=== PATIENT | female | born 1980 | race Caucasian/White ===

== ENCOUNTER 2018-10-23 14:23 | Emergency (ER) | payer MEDICARE, OTHER ==
[~2018-10-23] VITALS: Wt 99.0 kg
[~2018-10-23 14:23] MED LIST: FERR27TA PO; PREN1TAB49; TYLENOL; [UNRECOGNIZED DRUG - REMARK]
[2018-10-23 14:29] VITALS: Wt 99.0 kg
[2018-10-23] MEDS ORDERED: SODIUM CHLORIDE 0.9% 1L BAG IV* STA (14:38)
[2018-10-23] MEDS ORDERED: NITR-58 PO (16:11)
--- NOTE | 2018-10-23 16:11 | ERD ---
ER Documentation Chief Complaint Chief Complaint LUQ AP since last night. vomit x1. urinary frequency; no pain/ burning. HPI 38-year-old female presents the emergency department complaining of left upper quadrant abdominal pain and urinary frequency. Patient states that beginning yesterday, she began having the above symptoms. She reported no fevers or chills. She states she has had similar pain previously but this is slightly worse. The pain does not radiate. She reports no hematuria, vaginal bleeding, diarrhea. ROS All systems reviewed and are negative except as per history of present illness. Medications Home Meds Reported Medications [?Nausea Med] No Conflict Check 09/01/11 [Tylenol] No Conflict Check 09/01/11 Ferrous Sulfate (Iron) 1 Tab Tablet, PO DAILY 08/09/11 Vits W-Ca,Fe,Fa(<1MG) () 1 Tab Tablet 07/24/11 Allergies Allergies: Coded Allergies: metronidazole (Verified Allergy, Mild, 10/30/14) Sulfa (Sulfonamide Antibiotics) (Verified Allergy, Unknown, 10/30/14) PMhx/Soc History of Surgery: Yes (C SECTION ) Anesthesia Reaction: No Hx Neurological Disorder: No Hx Respiratory Disorders: No Hx Cardiac Disorders: No Hx Psychiatric Problems: No Hx Miscellaneous Medical Probl: Yes (MILD RETARDED) Hx Alcohol Use: No Hx Substance Use: No Hx Tobacco Use: No Smoking Status: Never smoker FmHx Noncontributory for chief complaint Physical Exam Vitals Vital Signs Date Temp Pulse Resp B/P (MAP) Pulse Ox O2 O2 Flow FiO2 Time Delivery Rate 10/23/18 100.8 102 16 139/74 100 14:29 (95) Physical Exam GENERAL: The patient is well developed and appropriate for usual state of health in no apparent distress HEENT: Pupils equal, round, and reactive to light. EOMI. There is no scleral icterus. NECK: C-spine is soft and supple, there is no meningismus. There is no cervical lymphadenopathy. LUNGS: Clear to auscultation bilaterally. There are no rales, wheezes or rhonchi. HEART: Regular rate and rhythm, no murmurs, clicks, rubs or gallops. ABDOMEN: Soft, non-tender, non-distended. There are bowel sounds in all four quadrants. No rebound or guarding. No CVA tenderness EXTREMITIES: There is no peripheral cyanosis or edema. No focal swelling or erythema. NEURO: The patient moves all four extremities with 5/5 strength. Cranial nerves II - XII are intact. Normal gait. Alert and oriented SKIN: There is no apparent rash or petechiae. HEME/LYMPHATIC: There is no evidence of excessive bruising or lymphedema. PSYCHIATRIC: The patient does not appear anxious or depressed. Result Diagram: 10/23/18 1459 10/23/18 1459 Results 24 hrs Laboratory Tests Test 10/23/18 14:49 10/23/18 14:59 10/23/18 15:03 POC Venous Lactate 1.2 mmol/L White Blood Count 10.9 10^3/ul Red Blood Count 4.32 10^6/ul Hemoglobin 12.5 g/dl Hematocrit 39.0 % Mean Corpuscular Volume 90.3 fl Mean Corpuscular Hemoglobin 28.9 pg Mean Corpuscular 32.1 g/dl Hemoglobin Concent Red Cell Distribution Width 12.9 % Platelet Count 396 10^3/UL Mean Platelet Volume 9.1 fl Immature Granulocytes % 0.300 % Neutrophils % 58.2 % Lymphocytes % 32.1 % Monocytes % 7.4 % Eosinophils % 1.5 % Basophils % 0.5 % Nucleated Red Blood Cells % 0.0 /100WBC Immature Granulocytes # 0.030 10^3/ul Neutrophils # 6.3 10^3/ul Lymphocytes # 3.5 10^3/ul Monocytes # 0.8 10^3/ul Eosinophils # 0.2 10^3/ul Basophils # 0.1 10^3/ul Nucleated Red Blood Cells # 0.0 10^3/ul Urine Color ALEC Urine Clarity CLOUDY Urine pH 6.0 Urine Specific [place] 1.030 Urine Ketones NEGATIVE mg/dL Urine Nitrite NEGATIVE mg/dL Urine Bilirubin NEGATIVE mg/dL Urine Urobilinogen 1+ mg/dL Urine Leukocyte Esterase NEGATIVE [place]/ul Urine Microscopic RBC 3 /HPF Urine Microscopic WBC 12 /HPF Urine Squamous Epithelial Cells MODERATE /HPF Urine Mucus MANY /HPF Urine Hemoglobin 3+ mg/dL Urine Glucose NEGATIVE mg/dL Urine Total Protein 1+ mg/dl Sodium Level 142 mmol/L Potassium Level 4.3 mmol/L Chloride Level 108 mmol/L Carbon Dioxide Level 25 mmol/L Anion Gap 9 Blood Urea Nitrogen 12 mg/dl Creatinine 0.63 mg/dl Est Glomerular Filtrat > 60 mL/min Rate mL/min Glucose Level 103 mg/dl Calcium Level 9.4 mg/dl Total Bilirubin 0.3 mg/dl Direct Bilirubin 0.00 mg/dl Indirect Bilirubin 0.3 mg/dl Aspartate Amino Transf (AST/SGOT) 19 IU/L Alanine 21 IU/L Aminotransferase (ALT/SGPT) Alkaline Phosphatase 103 IU/L Troponin I < 0.012 ng/ml Total Protein 7.8 g/dl Albumin 4.2 g/dl Globulin 3.60 g/dl Albumin/Globulin Ratio 1.16 POC Beta HCG, Qualitative NEGATIVE Current Medications Medications Dose Sig/Tad Start Time Status Last (Trade) Ordered Route PRN Stop Time Admin Dose Reason Admin Sodium 2,970 ml BOLUS OVER 2 10/23/18 DC 10/23/18 Chloride HOURS STAT 14:38 15:48 (NS) IV* 10/23/18 14:39 Procedures/MDM Patient was taken to a room, seen and evaluated. Comfort measures were initiated. Diagnostic tests were ordered and reviewed. 3 LEAD RHYTHM STRIP: Normal sinus rhythm without ectopy EK lead EKG reviewed by myself: Normal Sinus Rhythm Normal [place] and intervals No ST elevation, depression, or T wave inversion Impression: Normal EKG RADIOLOGY: Reviewed with the radiologist REEVALUATION: Diagnostic tests were appreciated. Patient was reevaluated. She remained having a benign abdomen and continued to be well-appearing. MEDICAL DECISION MAKIN-year-old female presents the emergency department nonspecific abdominal pain. Diagnostic work-up focused on intra-abdominal surgical concerns including diverticulitis, cholecystitis and other concerns. Ultimately she shows evidence of urinary tract infection with no evidence of pyelonephritis or sepsis. She appears to be clinically nontoxic and appropriate for discharge with antibiotics and precautionary instructions provided. Departure Diagnosis: Primary Impression: Urinary tract infection Condition: Stable OTONIEL ALBRECHT October 23, 2018 16:11
[2018-10-23] MEDS ORDERED: LORA0.5T PO (16:18)
[2018-10-23 17:41] VITALS: BP 130/78; PULSE 67; RESP 16
--- NOTE | 2018-10-25 14:44 | RADRPT ---
Vent Rate: 86 bpm RR Interval: 0 msec MS Interval: 148 msec QRS Duration: 90 msec QT Interval: 344 msec QTC Interval: 411 msec P-R-T [place]: 49 - 55 - 7 degrees Normal sinus rhythm with sinus arrhythmia Nonspecific T wave abnormality Abnormal ECG Electronically Signed By: [facility]
== END 2018-10-23 16:38 | disposition home or self-care (01) ==
LOC: E/R 14:23
DX: N39.0 Urinary tract infection, site not specified (principal)
CPT/HCPCS: 36415; 71045; 80053; 81001; 81025; 83605; 84484; 85025; 87040; 87086; 93005; 99285; J7030